=== PATIENT | female | born 1985 | race Two or more races ===

== ENCOUNTER → 2017-12-17 | Outpatient (CLI) | payer OTHER ==
[~2017-12-17] MED LIST: CHOL500016 PO; FLU45SYR25 IM ONLY; LISI5TAB25 PO; MULT-768 PO; SIMV-49 PO; SITA1TAB13 PO; SITA1TAB17 PO
== END ==
LOC: LAB 08:58
PROVIDERS: ATTEND Emergency Medicine
DX: E11.9 Type 2 diabetes mellitus without complications (principal); E55.9 Vitamin D deficiency, unspecified
CPT/HCPCS: 36415; 82306; 83036

== ENCOUNTER → 2018-03-12 | Outpatient (CLI) | payer BC | LOC: LAB 08:15 | PROVIDERS: ATTEND Emergency Medicine | DX: E11.9 Type 2 diabetes mellitus without complications (principal) | CPT/HCPCS: 36415; 83036 ==

== ENCOUNTER → 2018-09-24 | Outpatient (CLI) | payer BC ==
[~2018-09-24] MED LIST changes: +METR-160 PO
[2018-09-24 09:30] LABS: PLATELET COUNT, AUTOMATED 273 K/uL (150-450)
[2018-09-24 10:25] LABS: LDL CHOLESTEROL 83 mg/dl
== END ==
LOC: LAB 09:12
PROVIDERS: ATTEND Emergency Medicine
DX: E11.9 Type 2 diabetes mellitus without complications (principal)
CPT/HCPCS: 36415; 82040; 82247; 82310; 82374; 82435; 82465; 82565; 82947; 83036; 83718; 84075; 84132; 84155; 84295; 84450; 84460; 84478; 84520; 85025

== ENCOUNTER → 2019-02-05 | Outpatient (CLI) | payer BC ==
[~2019-02-05] MED LIST changes: -METR-160 PO; +METR500T15 PO
--- NOTE | 2019-02-05 15:17 | RADIOLOGY IMAGING REPORT ---
[place] [facility] [place] NAME: CALLI MARQUEZ : [id number] MR: [id number] V: [id number] EXAM DATE: ORDERING PHYSICIAN: HUMPHREY GUZMÁN TECHNOLOGIST: Nataly Guallpa PROCEDURE:BILATERAL DIAGNOSTIC DIGITAL MAMMOGRAM WITH CAD ASSISTED INTERPRETATION & 3D TOMOSYNTHESIS COMPARISON:Prior mammograms dated 05/10/17, 11/07/16 INDICATIONS:fibroadenoma of rt breast FINDINGS: The breasts are extremely dense which lowers the sensitivity of mammography. There are multiple lobular densities seen throughout the breasts that appear similar to the prior study. Today's bilateral breast Ultrasound demonstrated multiple solid masses in both breasts. Please see today's bilateral breast Ultrasound dictation for additional findings. Ultrasound guided core biopsy of the solid hypoechoic mass in the 11 o'clock position of the Left breast 3cm from the nipple was recommended. DIAGNOSTIC CATEGORY 4--SUSPICIOUS FOR MALIGNANCY. RECOMMENDATIONS: ULTRASOUND-GUIDED CORE BIOPSY: LEFT BREAST. IMPRESSION: BIRADS 4: Suspicious for malignancy. Ultrasound guided core biopsy of the solid hypoechoic mass 11 o'clock position of the Left breast 3cm from the nipple recommended. Please see today's bilateral breast Ultrasound dictation. Dictated by: Vivian Jacobs M.D. on 02/05/2019 at 15:01 Transcribed by: RENE on 02/05/2019 at 15:12 Approved by: Vivian Jacobs M.D. on 02/05/2019 at 15:16 [facility]
--- NOTE | 2019-02-05 15:58 | RADIOLOGY IMAGING REPORT ---
FACILITY: [facility] - [place] PATIENT NAME: CALLI MARQUEZ : [id number] MR: [id number] V: [id number] EXAM DATE: ORDERING PHYSICIAN: HUMPHREY GUZMÁN TECHNOLOGIST: Iza Polanco RDMS PROCEDURE:US BILATERAL BREAST COMPARISON:Bilateral breast Ultrasound of 05/08/17 INDICATIONS:6 month f/u, fibroadenoma right breast FINDINGS: In the Left breast 12 o'clock position 4cm from the nipple there is an ovoid hypoechoic nodule measuring 1.4 x 0.7 x 1.7cm that appears slightly more elongated when compared to the prior study. In the 1 o'clock position of the Left breast 5cm from the nipple there is a 1.3 x 0.3 x 1.1cm ovoid hypoechoic structure with acoustic enhancement. This could represent a debris filled cyst. In the 1 o'clock position Left breast 1cm from the nipple there is a 1.1 x 0.4 x 1.1cm fatty replaced lymph node. In the 3 o'clock position of the Left breast 1cm from the nipple there is an 8.6 x 5 x 10mm ovoid hypoechoic nodule not definitively seen in the prior study. In the 4 o'clock position Left breast 2cm from the nipple there is a 6.3 x 3.4 x 5.8mm ovoid well circumscribed hypoechoic nodule not definitively seen on the prior study. In the 4 o'clock position Left breast 1cm from the nipple there is a 6mm cyst. In the 5 o'clock position Left breast 2cm from the nipple there is a 1.2 x 0.6 x 1cm ovoid hypoechoic nodule which may represent the previously described nodule in the 5 o'clock position which is described as 4cm from the nipple. If these are the same nodules this is slightly increased in size. There is mild acoustic enhancement. No acoustic shadowing. In the 7 o'clock position Left breast 1cm from the nipple there is a mildly dilated duct. In the 8 o'clock position Left breast 5cm from the nipple is a 7 x 3 x 8mm ovoid well circumscribed hypoechoic nodule. This may represent the hypoechoic nodule previously described in the 9 o'clock position of the Left breast 6cm from the nipple. If this is the same nodule it is slightly increased in size. In the 11 o'clock position of the Left breast 3cm from the nipple there is a 2.3 x 1.4 x 1.6cm slightly lobular circumscribed mass. This was not demonstrated on the prior study. In the 11:30 position of the Left breast there is a 7.4 x 5.6 x 7.5mm well circumscribed hypoechoic mass that appears relatively unchanged. In the Right breast 12 o'clock position 7cm from the nipple there is a 7 x 6 x 8mm ovoid hypoechoic mass that is not significantly increased in size by measurements although it appears to exhibit a different morphology when compared to the prior study. In the 5 o'clock position of the Right breast 4cm from the nipple there is a 9 x 3 x 7mm ovoid hypoechoic nodule not significantly changed in size. In the 7 o'clock position of the Right breast 4cm from the nipple there is an ovoid well circumscribed hypoechoic mass measuring 1.6 x 0.8 x 2.1cm which is not significantly changed in size. In the 10 o'clock position of the Right breast 6cm from the nipple there is a 9 x 10 x 7mm hypoechoic nodule with echogenic central region which may represent a lymph node. This was not demonstrated on the prior study. In the 11 o'clock position Right breast 8cm from the nipple there is a 10 x 11 x 14mm ovoid hypoechoic mass not significantly changed in size. DIAGNOSTIC CATEGORY 4--SUSPICIOUS FOR MALIGNANCY. RECOMMENDATIONS: ULTRASOUND-GUIDED CORE BIOPSY: LEFT BREAST. IMPRESSION: BIRADS 4: Suspicious for malignancy. There are numerous hypoechoic masses seen throughout both breasts. Some are not demonstrated on the prior study. Some have remained relatively stable or are minimally increased. There is however a large solid hypoechoic mass in the 11 o'clock position of the Left breast 3cm from the nipple not demonstrated previously for which Ultrasound guided core biopsy is recommended. Dictated by: Vivian Jacobs M.D. on 02/05/2019 at 14:58 Transcribed by: RENE on 02/05/2019 at 15:30 Approved by: Vivian Jacobs M.D. on 02/05/2019 at 15:56 [facility]
== END ==
LOC: MAMO 00:24
PROVIDERS: ATTEND Emergency Medicine
DX: N63.10 Unspecified lump in the right breast, unspecified quadrant (principal); N63.20 Unspecified lump in the left breast, unspecified quadrant
CPT/HCPCS: 77062; 77066

== ENCOUNTER 2019-02-09 08:00 | Outpatient (RCR) | payer BC ==
[2019-02-09 09:01] LABS: INR 0.95
--- NOTE | 2019-02-16 09:46 | RADIOLOGY IMAGING REPORT ---
FACILITY: [facility] PATIENT NAME: CALLI MARQUEZ : [id number] MR: [id number] V: [id number] EXAM DATE: [id number] ORDERING PHYSICIAN: HUMPHREY GUZMÁN TECHNOLOGIST: Iza Polanco RDMS PROCEDURE: BIOPSY LEFT BREAST COMPARISON: None. INDICATIONS: Left breast nodule FINDINGS: Signed written informed consent was obtained from the patient prior to the procedure. The risks include but are not limited to bleeding, infection, pain. All questions were answered. The final timeout was performed prior to the procedure. The Left breast was prepped and draped in the sterile fashion. The 2cm solid mass in the Left breast 11 o'clock position, 3cm from the nipple was localized with Ultrasound. Superficial anesthesia was preformed with 5cc of lidocaine. Deep anesthesia was preformed with 3cc of lidocaine with epinephrine. A superficial skin mitch was made with a scalpel. Using Ultrasound guidance, 5 passes using a 14 Gauge biopsy device was preformed through the mass. A metallic clip was left at the biopsy site. No post procedure mammogram was preformed as the finding is an Ultrasound finding. IMPRESSION: 1. Technically successful ultrasound guided core biopsy of a 2cm solid mass in the Left breast 11 o'clock position, 3cm from the nipple. 2. Samples were sent to Pathology. Dictated by: Junaid Tyson M.D. on 02/10/2019 at 16:15 Transcribed by: ESAU on 02/11/2019 at 10:14 Approved by: Vivian Jacobs M.D. on 02/16/2019 at 9:45 [facility]
== END 2019-02-10 18:00 | disposition home or self-care (01) ==
LOC: US 08:00 → LAB 08:35 → EDSTATUS 13:54 → US 02-10 18:00
PROVIDERS: ATTEND Emergency Medicine
DX: N60.22 Fibroadenosis of left breast (principal)
CPT/HCPCS: 19083; 36415; 85610; 85730; 88305; 88344